=== PATIENT | female | born 1945 | race Caucasian/White ===

== ENCOUNTER 2019-09-09 17:40 | Observation (INO) | payer BC, MEDICARE ==
[2019-09-09 19:57] LABS: Troponin I Less than 0.010 ng/mL (< 0.028)
[2019-09-09] MEDS ORDERED: Azithromycin 500 MG in Sodium Chloride 0.9% 250 ML 250 ML IVPB SCH (20:00)
[2019-09-09 20:37] LABS: Bilirubin Negative (Negative); Blood, Urine Negative (Negative); Clarity Clear (Clear); Glucose, Urine (Dipstick) Normal (Negative); Leukocyte Negative Leu/uL (Negative); Nitrite Negative (Negative); Protein, Urine (Dipstick) 20 mg/dL (Neg-Trace); Urobilinogen Normal mg/dL (Less than 2)
[2019-09-10] MEDS ORDERED: hydrALAZINE 20 MG/ML VIAL SLOW IVP PRN (02:14)
[2019-09-10] MEDS ORDERED: guaiFENesin/Codeine Phosphate 200 mg/20 mg 10 ml UD Cup PO PRN (02:14)
[2019-09-10] MEDS ORDERED: Acetaminophen 325 MG TAB PO PRN (02:14)
[2019-09-10] MEDS ORDERED: Nicotine 14 MG PATCH TD SCH (02:15)
--- NOTE | 2019-09-10 02:59 | HP ---
PRIMARY CARE PHYSICIAN: Liyah Starkey MD CHIEF COMPLAINT: Tightness across my chest and cough. HISTORY OF PRESENT ILLNESS: Ms. Stockton is a pleasant 74-year-old female, who has a history of hypertension and atrial fibrillation. She was in her usual state of health until 1 to 2 days ago. She said she was having some tightness in hurting across her chest. She says it was worse when she lays on the right side. It was basically constant and she says it was more like a soreness and was not very severe. She also had an associated cough and she says that she could not hardly bring up anything but when she does, she notices some white-colored phlegm, but there is no blood. No shortness of breath. No nausea, no vomiting, but she has noted a poor appetite. Due to her symptoms, she came to the ER for evaluation. In the ER, she was noted to have CT scan evidence of possible infiltrate and this was on the right mid lung, as well as an elevated white blood cell count and she has been placed in observation for further evaluation. The patient says that she currently feels better and she says that she does not plan to stay here much longer and when the morning comes, she says "she is going home." REVIEW OF SYSTEMS: All systems were reviewed and are negative except for that mentioned in the history of present illness. PAST MEDICAL HISTORY: Significant for hypertension and atrial fibrillation. PAST SURGICAL HISTORY: She has had a back surgery. ALLERGIES: TO PENICILLIN, WHICH CAUSES RASH. SOCIAL HISTORY: She is a smoker. She smokes at least a pack a day for the last 50 years. Denies any alcohol use. She is . She has one living daughter and would like to be a full code. FAMILY HISTORY: Significant for father, who had heart disease. CURRENT MEDICATIONS: Include aspirin 81 mg a day, as well as lisinopril 2.5 mg p.o. daily. PHYSICAL EXAMINATION: GENERAL: She is alert and oriented. She appears to be in no acute distress. VITAL SIGNS: Blood pressure is 158/84, heart rate 105, respiratory rate of 20, temperature is 99.9. HEENT: Pupils are equal, round, and reactive. Extraocular muscles are intact. Her sclerae anicteric. Throat, no erythema, no exudates. NECK: No adenopathy. No bruits on her lungs. She has rhonchi throughout much of the lung miller, but the right is greater than the left as well as some rales at the bases. She did have an occasional wheeze. CARDIOVASCULAR: She has normal S1, S2. There is no S3 or S4. No murmurs, clicks, or rubs. ABDOMEN: Soft, nontender, and nondistended. Positive for bowel sounds. No rebound. No guarding. No organomegaly. EXTREMITIES: There is no clubbing or cyanosis. No edema. No joint effusions. NEUROLOGICAL: Grossly nonfocal. SKIN AND INTEGUMENT: No skin changes. No rash. LABORATORY DATA: White blood cell count 17.2, hemoglobin 14.3, hematocrit is 46.8, and platelet count is 359. Sodium 142, potassium 3.7, chloride is 109, CO2 is 20, BUN of 15, creatinine 0.8, glucose is 140, alkaline phosphatase is slightly elevated at 140. Again, CT scan showed findings consistent with right middle lobe infiltrate. Chest x-ray showing a patchy parenchymal distal density in the right mid lung field, possibly pneumonitis. ASSESSMENT: 1. This is a pleasant 74-year-old female, who presents with cough and chest pain, elevated white blood cell count, and radiographic evidence of pneumonia. She is being admitted, started on IV antibiotics, DuoNeb p.r.n., and supplemental oxygen as needed. This will be treated as a community-acquired pneumonia. 2. Hypertension, reconcile and restart antihypertensive medications as well as p.r.n. medicines. Re-evaluate her in the a.m. and hopefully, she can be discharged home relatively soon. Job ID: [id number]
[2019-09-10 05:04] LABS: #Eosinphils 0.1 thou/uL (0.0-0.7); #Lymphocytes 2.2 thou/uL (1.20-3.40); #Monocytes 0.9 thou/uL (0.11-0.59); #Neutrophils 5.3 thou/uL (1.40-6.50); %Basophils 0.4 % (0.0-1.0); %Eosinophils 1.3 % (0.0-10.0); %Lymphocytes 25.2 % (21.0-51.0); %Monocytes 10.9 % (0.0-10.0); %Neutrophils 62.2 % (42.0-75.0); Anion Gap 10 mmol/L (10-20); BUN (Urea Nitrogen) 12 mg/dL (9.8-20.1); Calc. Creatinine Clearance 0 mL/min (70-130); Calcium 8.5 mg/dL (7.8-10.44); Carbon Dioxide 20 mmol/L (23-31); Chloride 112 mmol/L (98-107); Estimated GFR-MDRD Greater than 90; Glucose 119 mg/dL (83-110); Hemoglobin 10.9 g/dL (12.0-16.0); Mean Corpuscular HGB CONC 33.9 g/dL (32.0-36.0); Mean Corpuscular Hemoglobin 31.4 pg (27.0-31.0); Mean Corpuscular Volume 92.5 fL (78.0-98.0); Mean Platelet Volume 9.5 fL (7.4-10.4); Platelet Count 209 thou/uL (130-400); Potassium 3.7 mmol/L (3.5-5.1); RBC Distribution Width 12.3 % (11.5-14.5); Red Blood Cell (RBC) Count 3.46 mill/uL (4.20-5.40); Sodium 138 mmol/L (136-145); White Blood Cell (WBC) Count 8.6 thou/uL (4.8-10.8)
[2019-09-10 07:26] VITALS: BMI 19.8
[2019-09-10] MEDS ORDERED: Saccharomyces boulardii 250 MG CAP PO SCH (09:00)
[2019-09-10] MEDS ORDERED: Enoxaparin Sodium 40 MG/0.4 ML SYRINGE SC SCH (09:00)
[2019-09-10 16:13] VITALS: BP 143/88; TEMP 97.7
--- NOTE | 2019-09-11 05:00 | DIS ---
DATE OF ADMISSION: 09/09/2019 DATE OF DISCHARGE: 09/10/2019 PRIMARY CARE PHYSICIAN: Liyah Starkey MD CHIEF COMPLAINT: Shortness of breath. HISTORY OF PRESENT ILLNESS: The patient is a 74-year-old female, who presents to the hospital with atypical chest pain and also cough. She does have a history of hypertension and atrial fibrillation, however, has never taken any anticoagulation or has never officially been diagnosed with atrial fibrillation. The patient came into the hospital with complaints of cough and tightness in her chest. The patient at this time was found to have leukocytosis of 17,000. She was initiated as a sepsis alert and was brought into the hospital for further evaluation. The patient did have a CT chest, which indicated a right middle lobe pneumonitis, some focal pneumonitis change, and some nodular base density in the right lower lobe. She also has a small pericardial effusion and a large hiatal hernia. She also had hyperinflated lungs. The patient at this time was put on broad-spectrum antibiotics that will cover atypical bacteria and also was given DuoNeb. The patient states that at times she does feel irregularly irregular rhythm, however, she has never been evaluated for that. I have advised her to follow up with her primary to get this evaluated. She currently is on aspirin at home, however, I do not see that in her home medications. I recommended her taking an aspirin and following up with her primary this week or next week. The patient stated that her pain was more of like an ache pain. She currently has no pain. Her troponins were negative and her BNP was mildly elevated. The patient definitely needs a further cardiac workup. She currently wants to go home and does not want any further testing. However, I would recommend this patient to get maybe an official outpatient stress evaluation. The patient currently appears well. She is not short of breath. She is able to ambulate. Her lungs appeared clear. She wants to go home. She will be discharged home. She will follow up with her primary care this week or next week. HOME MEDICATIONS: 1. I have started her on aspirin 81 mg daily, which she states that she takes at home. 2. Levaquin 750 mg for the next six days. 3. I also gave her albuterol 1 puff q.i.d. as needed for rescue inhaler. PHYSICAL EXAMINATION: VITAL SIGNS: Temperature of 97.9, heart rate 92, respiratory rate 16, oxygen saturation 97% on room air, and blood pressure 121/70. GENERAL: She is awake, alert, and oriented x3. Does not appear in distress. CV: S1 and S2 present. No murmurs, rubs, or gallops. ABDOMEN: Soft and nontender. Bowel sounds are present x2. Again, she will be discharged home with followup with her primary. I have also recommended her to get a repeat CAT scan in 3 to 6 months to make sure that that area has resolved. I mentioned this to the patient and the patient's daughter who is at the bedside. Also, the patient will require cardiac workup. She may require loop monitor given her fact that she has palpitations at times. She is currently on aspirin. She has high CHADS-VASc score and she is at risk for stroke. I did express this to the patient and the patient's daughter and recommended further cardiac workup. I also told the patient that if she has chest pain or any kind of symptoms, she needs to return back to the hospital. Job ID: [id number]
== END 2019-09-10 16:30 | disposition home or self-care (01) ==
LOC: ERS 17:40 → ERHOLD 19:18 → INTOOBSV 19:18 → SJJU 09-10 05:35
PROVIDERS: ADMIT Emergency Medicine; ATTEND Emergency Medicine
DX: J18.9 Pneumonia, unspecified organism (principal); I10 Essential (primary) hypertension; I48.91 Unspecified atrial fibrillation; I31.3 Pericardial effusion (noninflammatory); K44.9 Diaphragmatic hernia without obstruction or gangrene; F17.210 Nicotine dependence, cigarettes, uncomplicated; Z79.82 Long term (current) use of aspirin; Z79.899 Other long term (current) drug therapy; Z88.0 Allergy status to penicillin
CPT/HCPCS: 36415; 80048; 81003; 85025; 87070; 87205; 87804; 93005; 96365; J1956

== ENCOUNTER 2021-02-10 08:46 | Emergency (ER) | payer MEDICARE ==
[2021-02-10] MEDS ORDERED: Ketorolac Tromethamine 30 MG/ML VIAL ONE (09:54)
[2021-02-10 10:49] LABS: Bilirubin Negative (Negative); Blood, Urine Negative (Negative); Clarity Clear (Clear); Glucose, Urine (Dipstick) Normal (Negative); Ketone, Urine Negative (Negative); Leukocyte Negative Leu/uL (Negative); Nitrite Negative (Negative); Protein, Urine (Dipstick) Negative (Neg-Trace); Specific Gravity, Urine 1.017 (1.002-1.036); Urobilinogen Normal mg/dL (Less than 2); pH, Urine 6.5 (5.0-9.0)
[2021-02-10] MEDS ORDERED: HYDROcodone/Acetaminophen 5/325 mg Tablet ONE (11:24)
== END 2021-02-10 13:36 | disposition home or self-care (01) ==
LOC: ERS 08:46
DX: S32.039D Unspecified fracture of third lumbar vertebra, subsequent encounter for fracture with routine healing (principal); S32.049D Unspecified fracture of fourth lumbar vertebra, subsequent encounter for fracture with routine healing; Z79.899 Other long term (current) drug therapy; Z79.82 Long term (current) use of aspirin; Z79.01 Long term (current) use of anticoagulants; I48.91 Unspecified atrial fibrillation; I10 Essential (primary) hypertension; F17.210 Nicotine dependence, cigarettes, uncomplicated
CPT/HCPCS: 72100; 72131; 81003; 96372; J1885

== ENCOUNTER 2021-11-27 00:40 | Observation (INO) | payer MEDICARE ==
[2021-11-27] MEDS ORDERED: Ondansetron PF 4 MG/2 ML Vial IVP PRN (02:04)
[2021-11-27] MEDS ORDERED: Acetaminophen 325 MG TAB PO PRN (02:04)
[2021-11-27] MEDS ORDERED: Morphine 2 MG/ML VIAL SLOW IVP PRN (02:06)
[2021-11-27] MEDS ORDERED: Lorazepam 2 MG/ML VIAL SLOW IVP PRN (02:07)
[2021-11-27] MEDS ORDERED: Sodium Chloride 0.9% 1,000 ML IV SCH ×2 (02:15→12:22)
[2021-11-27] MEDS ORDERED: Fentanyl 100 MCG/2 ML VIAL ONE (02:19)
[2021-11-27 04:31] VITALS: BMI 14.3
[2021-11-27] MEDS: metroNIDAZOLE 500 MG in Premix Bag 1 BAG IVPB SCH ×2 (05:13→11:24)
[2021-11-27 07:59] VITALS: BP 94/59; TEMP 97.4
[2021-11-27] MEDS ORDERED: Cefepime 1 GM in Sodium Chloride 0.9% 100 ML IVPB SCH (09:00)
[2021-11-27] MEDS ORDERED: Calcium Carbonate 500 MG ChewTAB PO PRN (12:21)
[2021-11-27] MEDS ORDERED: Pantoprazole 40 MG VIAL IVP SCH (12:45)
[2021-11-27] MEDS ORDERED: fentaNYL 50 mcg/hour Patch TD SCH (14:00)
[2021-11-28] MEDS ORDERED: Pantoprazole 40 MG VIAL IVP SCH (09:00)
== END 2021-11-27 20:16 | disposition home or self-care (01) ==
LOC: ERS 00:40 → T4-A 02:04
PROVIDERS: ADMIT Family Medicine; ATTEND Family Medicine
DX: K52.9 Noninfective gastroenteritis and colitis, unspecified (principal); K66.8 Other specified disorders of peritoneum; J85.2 Abscess of lung without pneumonia; C34.90 Malignant neoplasm of unspecified part of unspecified bronchus or lung; C78.7 Secondary malignant neoplasm of liver and intrahepatic bile duct; C79.00 Secondary malignant neoplasm of unspecified kidney and renal pelvis; C79.51 Secondary malignant neoplasm of bone; I48.91 Unspecified atrial fibrillation; I10 Essential (primary) hypertension; K80.20 Calculus of gallbladder without cholecystitis without obstruction; Z66 Do not resuscitate; Z87.891 Personal history of nicotine dependence; Z79.01 Long term (current) use of anticoagulants; Z79.899 Other long term (current) drug therapy; Z88.0 Allergy status to penicillin
CPT/HCPCS: 93005; 96374; 96375; 96376; C9113; G0378; J1956; J3010; J7050